=== PATIENT | female | born 1970 | race African-American/Black ===

== ENCOUNTER 2023-08-12 00:20 | Emergency (ER) | payer OTHER ==
[~2023-08-12] VITALS: Ht 165.1 cm; Wt 63.0 kg
[2023-08-12 00:41] VITALS: O2SAT 100
[2023-08-12 03:09] LABS: BASOPHILS % 0.8 % (0.0-2.0); DIFFERENTIAL COMMENT 0; EOSINOPHILS % 0.7 % (0.0-5.0); HEMATOCRIT. 36.8 % (36.0-48.0); HEMOGLOBIN. 12.7 g/dL (12.0-16.0); LYMPHOCYTES % 34.6 % (20.0-50.0); MEAN CORPUSCULAR HEMOGLOBIN 32.1 pg (28.0-32.0); MEAN CORPUSCULAR HGB CONC 34.4 g/dL (31.0-37.0); MEAN CORPUSCULAR VOLUME 93.3 fL (81.0-99.0); MEAN PLATELET VOLUME 9.4 fl (7.4-10.4); MONOCYTES % 7.4 % (2.0-8.0); NEUTROPHILS % 56.5 % (40.0-76.0); PLATELET 233 x1000/uL (130-400); RED BLOOD CELL COUNT 3.95 mill/uL (4.2-5.4); RED CELL DISTRIBUTION WIDTH 12.4 % (11.6-14.6); WHITE BLOOD COUNT 4.7 x1000/uL (4.5-11.0)
[2023-08-12] MEDS: ACETAMINOPHEN 325MG TABLET PO ONE (03:09)
[2023-08-12] MEDS: HYDRALAZINE 20MG/ML VIAL IV ONE (03:09)
[2023-08-12 03:31] LABS: ALANINE AMINOTRANSFERASE 11 IU/L (10-49); ALBUMIN 4.3 g/dL (3.2-4.8); ASPARTATE AMINOTRANSFERASE 18 IU/L (<34); BILIRUBIN TOTAL 0.4 mg/dL (0.1-1.0); CALCIUM 8.5 mg/dL (8.7-10.4); CARBON DIOXIDE 28 mEq/L (21-32); CHLORIDE 107 mEq/L (98-107); CREATININE 0.8 mg/dL (0.6-1.0); GLUCOSE 97 mg/dL (70-105); POTASSIUM 3.6 mEq/L (3.5-5.1); PROTEIN TOTAL 6.6 g/dL (6.0-8.3); SODIUM 139 mEq/L (136-145); TROPONIN I HIGH SENSITIVITY 4 ng/L (3.0-34); UREA NITROGEN BLOOD 8 mg/dL (9-23)
[2023-08-12] MEDS: ONDANSETRON HCL 4MG/2ML INJ IV NR (05:10)
[2023-08-12] MEDS: MORPHINE SULFATE 4 MG/ML CPJ (NOT FOR IM USE) IV NR (05:10)
[2023-08-12] MEDS: LABETALOL 5MG/ML SYR 20 MG/4 ML SYRINGE IV NR (05:10)
[2023-08-12 05:53] VITALS: BP 160/100; PULSE 66; RESP 11; TEMP 98.4
[2023-08-12] MEDS ORDERED: AMLO10TA80 MT (05:59)
[2023-08-12] MEDS ORDERED: HYDR-4001 MT (05:59)
== END 2023-08-12 06:19 | disposition home or self-care (01) ==
LOC: ER 00:20
DX: I10 Essential (primary) hypertension (principal); R51.9 Headache, unspecified; Z90.710 Acquired absence of both cervix and uterus; Z98.890 Other specified postprocedural states
CPT/HCPCS: 80053; 83880; 85025; 84484; 36415; 71045; 70450; 93005; 96374; 96375; 99291; J0360; J3490; J2405; J2270; Z7610